=== PATIENT | female | born 1935 | race Caucasian/White ===

== ENCOUNTER → 2018-06-25 | Outpatient (CLI) | payer OTHER ==
[~2018-06-25] MED LIST: ASPIR 8181 MG PO; COZAAR 50 MG TA50 M2 PO; FISH OIL 1,001000 M2 PO; LIPITOR 20 MG T20 M1 PO; TOPROL XL25 MG PO; VITAMIN B-12500 MCG PO; VITAMIN D3400 UNIT PO; ZOFRAN ODT4 MG PO
== END ==
LOC: ULTRA 13:44
DX: R68.89 Other general symptoms and signs (principal)